=== PATIENT | male | born 1965 | race Caucasian/White ===

== ENCOUNTER 2018-09-07 08:38 | Emergency (ER) | payer OTHER ==
[~2018-09-07] VITALS: Ht 182.9 cm; Wt 81.6 kg
[2018-09-07 08:48] VITALS: BP 119/77
[2018-09-07] MEDS ORDERED: CEPHALEXIN500 MG ORAL (09:02)
--- NOTE | 2018-09-07 10:22 | Emergency Room Report ---
History of Present Illness General Chief Complaint: Skin Rash/Abscess Source: Patient Present Illness HPI 53-year-old male presents to ED with redness and swelling to right thigh. States that he gives himself testosterone injections. States he administered an injection to his right thigh last week. States started noticed redness and swelling to the right thigh. Went to urgent care 2 days ago and was given Rocephin dose and discharged on Bactrim. Patient states that symptoms persist. Notes that there is overall improvement in redness and size and pain. Pain is dull, 5 out of 10, nonradiating. Denies fevers or chills. Denies any discharge. No other aggravating relieving factors. Denies any other associated symptoms Allergies: Coded Allergies: No Known Allergies (Unverified , 09/07/18) Patient History Past Medical History: none Past Surgical History: none Pertinent Family History: none Social History: Denies: smoking, alcohol use, drug use Immunizations: UTD Reviewed Nursing Documentation: PMH: Agreed; PSxH: Agreed Nursing Documentation-PMH Past Medical History: No Stated History Review of Systems All Other Systems: negative except mentioned in HPI Physical Exam Vital Signs Date Time Temp Pulse Resp B/P (MAP) Pulse Ox O2 Delivery O2 Flow Rate FiO2 09/07/18 08:44 97.7 63 20 119/77 97 Room Air Sp02 EP Interpretation: reviewed, normal General Appearance: no apparent distress, alert, GCS 15, non-toxic Head: normocephalic Eyes: bilateral eye normal inspection, bilateral eye PERRL ENT: normal ENT inspection Neck: normal inspection Respiratory: normal inspection Cardiovascular #1: normal inspection Gastrointestinal: normal inspection Rectal: deferred Genitourinary: no CVA tenderness Musculoskeletal: back normal, gait/station normal, normal range of motion, non- tender Neurologic: alert, oriented x3, responsive, motor strength/tone normal, sensory intact, speech normal Psychiatric: normal inspection Skin: other - 2cm area of iduration/erythema to R anterior thigh. no fluctuance or discharge Lymphatic: normal inspection Medical Decision Making Diagnostic Impression: Primary Impression: Cellulitis of thigh ER Course Hospital Course 53-year-old male presents to ED with redness, swelling to right thigh. s/p testosterone injection Differential diagnoses include: Cellulitis, dermatitis, insect bite, abscess Clinical course Patient placed on stretcher. After initial history, physical exam reveals a male in no acute distress. On exam there is approximately 2cm area of erythema and induration to the right anterior thigh. There is no fluctuance. There is no tenderness. patient is afebrile, nontoxic appearing. Patient states size and pain is overall improved compared to 2 days ago. Patient is currently taking Bactrim. Encouraged patient to continue the Bactrim. We will add Keflex. Warm compresses. Safe for discharge and close outpatient follow-up. instructed to return if pain worsens or patient develops fever. Diagnosis - cellulitis of thigh stable and discharged to home with prescription for keflex. continue bactrim. warm compresses. Instructed to followup with PMD. Instructed return to ED if symptoms recur or worsen Last Vital Signs Date Time Temp Pulse Resp B/P (MAP) Pulse Ox O2 Delivery O2 Flow Rate FiO2 09/07/18 09:06 97.7 63 20 119/77 97 Room Air Status: improved Disposition: HOME, SELF-CARE Condition: Stable Scripts Cephalexin* (KEFLEX*) 500 Mg Capsule 500 MG ORAL EVERY 6 HOURS for 7 Days, CAP Prov: Alvarez Brown MD 09/07/18 Referrals: NON PHYSICIAN (PCP) Patient Instructions: Post-Injection Inflammatory Reaction Additional Instructions: start keflex. continue bactrim as prescribed. warm compresses Alvarez Brown MD Sep 07, 2018 10:22
== END 2018-09-07 09:06 | disposition home or self-care (01) ==
LOC: EMR 08:45
DX: L03.116 Cellulitis of left lower limb (principal)
CPT/HCPCS: 99282